=== PATIENT | female | born 1955 | race Caucasian/White ===

== ENCOUNTER → 2018-04-26 10:36 | Outpatient (CLI) | payer SELFPAY ==
--- NOTE | 2018-04-26 10:44 | US_ITS ---
STUDY: ABDOMINAL ULTRASOUND - RIGHT UPPER QUADRANT REASON FOR VISIT: Female, 62 years old. Right abdominal pain x1 month. TECHNIQUE: Ultrasound evaluation of the right upper quadrant was performed with real-time and static hurley-scale imaging. TECHNICAL QUALITY: Adequate. COMPARISON: None. FINDINGS: Liver: The liver measures 16 cm. There is increased echogenicity consistent with fatty infiltration. The bile ducts are within normal limits. There is hepatic color flow. The direction of portal flow is hepatopetal. There is limited parenchymal detail. Gallbladder: Normal distended gallbladder. The gallbladder wall measures 2.8 mm. There is a negative sonographic Carreno's sign. There is no pericholecystic fluid. There are no gallstones. Common Bile Duct (C.B.D.): The common bile duct measures 3.5 mm. Pancreas: Normal size of the head, body and tail of the pancreas. There is normal echogenicity of the pancreas. There is no demonstrated pancreatic mass or cyst. Right Kidney: Normal size of the right kidney. The right kidney measures 10.5 x 5.5 x 5 cm. Normal renal cortex. The right cortex measures 1.5 cm. There is no demonstrated renal mass or cyst. There is no right hydronephrosis. US/Abdomen Limited IMPRESSION: Hepatic steatosis. Echogenic pancreas frequency with fat deposition. No gallbladder inflammation, biliary obstruction, hydronephrosis or ascites. Electronically Signed: Emeli Doe MD at 6:37 EST , Service support ,
== END ==
PROVIDERS: Family Provider Family Medicine; PCP Family Medicine; Referring Provider Family Medicine; Visit Provider Family Medicine
DX: R10.11 Right upper quadrant pain (principal)
CPT/HCPCS: 76705

== ENCOUNTER → 2018-05-28 16:21 | Outpatient (CLI) | payer SELFPAY ==
--- NOTE | 2018-05-28 16:26 | CT_ITS ---
STUDY: CT ABDOMEN AND PELVIS WITH CONTRAST REASON FOR EXAM: Female, 62 years old. Right-sided pain for months. RADIATION DOSAGE (If Supplied By Facility): CTDIvol = ( 14.50 ) mGy, DLP = ( 994.21 ) mGycm TECHNIQUE: Transaxial images were obtained from the dome of the diaphragm to the symphysis pubis with oral contrast. 100 mL of Isovue-300 IV contrast were administered. Sagittal and coronal images were reconstructed. Individualized dose optimization techniques were used for this CT. COMPARISON: Right upper quadrant ultrasound April 26, 2018. FINDINGS: 2 mm noncalcified nodule is seen in the anterolateral periphery of the right middle lobe on the first axial image. The visualized portions of the heart are within normal limits. Normal size and contour of the liver. Liver density is difficult to accurately assess after IV contrast. The patent portal vein diameter is 10 mm. Normal gallbladder and extrahepatic biliary system. Diameter of the common bile duct is 6.5 mm. Normal spleen. Borderline decreased density in the neck/head of the pancreas may reflect some fatty infiltration. Normal bilateral adrenal glands. Normal right kidney. Normal left kidney. No hydronephrosis. Normal visualized stomach. Normal small intestine. Normal colon. The appendix is visualized and appears normal. There is mild to moderate atherosclerotic calcification of the abdominal aorta, without a demonstrated aneurysm. Normal inferior vena cava. Normal retroperitoneum. Normal urinary bladder. There is overall atrophy of the uterus. Mild posterior bulge of the body of the uterus could reflect a subserosal fibroid. There is a 2.75 x 2.65 x 2.6 cm left ovarian cyst that abuts the left posterior fundal aspect of the uterus. There is a very small umbilical hernia containing fat. There are multilevel degenerative changes of the visualized spine, with particular note of posterior disc protrusion and endplate spurring at L2-3 impinging on the spinal canal. CT/Abdomen/Pelvis WITH Contrast IMPRESSION: 1. 2.75 cm left ovarian cyst. 2. Overall atrophy of the uterus. Small subserosal fibroid suggested along the posterior body of the uterus. 3. Mild to moderate atherosclerotic aortic calcification. No demonstrated aneurysm. 4. Degenerative changes of the spine. There is posterior disc protrusion and endplate spurring at L2-3 that impinges on the spinal canal. 5. 2 mm noncalcified nodule in the right middle lobe. Per Fleischner guidelines, this does not require specific radiographic follow-up. One might consider dedicated chest CT to exclude the presence of other pulmonary nodules, however. Electronically Signed: Kota Grey MD at 8:39 EST , Service support ,
== END ==
PROVIDERS: Family Provider Family Medicine; PCP Family Medicine; Referring Provider Surgery; Visit Provider Surgery
DX: R10.11 Right upper quadrant pain (principal); G89.29 Other chronic pain
CPT/HCPCS: 74177; Q9967

== ENCOUNTER → 2019-01-01 11:39 | Outpatient (CLI) | payer SELFPAY ==
--- NOTE | 2019-01-01 11:49 | RAD_ITS ---
STUDY: X-RAY - PELVIS AND RIGHT HIP REASON FOR EXAM: Female, 63 years old. Chronic right hip pain TECHNIQUE: 3 views of the pelvis and hip. COMPARISON: None. FINDINGS: There is a non-specific bowel gas pattern. There are multiple calcified phleboliths. Normal bilateral iliac wings, sacroiliac joints and visualized sacrum. Normal bilateral superior and inferior pubic rami. Normal pubic symphysis. Normal bilateral ischial tuberosities. Normal visualized femoral head. There is enthesopathic spurring of the greater trochanter. Normal acetabulum. Normal hip joint. There is no acute fracture. RAD/HIP, UNI W/ Pelvis 2-3 Views IMPRESSION: No fracture. Joint spaces are well-preserved. Mild spurring. Electronically Signed: Fernie Tolliver MD at 16:56 EDT , Service support ,
== END ==
PROVIDERS: Family Provider Family Medicine; PCP Family Medicine; Referring Provider Family Medicine; Visit Provider Family Medicine
DX: M16.11 Unilateral primary osteoarthritis, right hip (principal); M70.61 Trochanteric bursitis, right hip; Y93.9 Activity, unspecified
CPT/HCPCS: 73502

== ENCOUNTER → 2019-01-14 15:06 | Outpatient (CLI) | payer SELFPAY ==
--- NOTE | 2019-01-14 15:20 | RAD_ITS ---
STUDY: X-RAY - LUMBAR SPINE REASON FOR EXAM: Female, 63 years old. Low back pain TECHNIQUE: 5 view(s) of the lumbar spine were obtained. COMPARISON: None FINDINGS: Normal lumbar lordosis. There is no substantial scoliosis. There is a normal alignment of the vertebrae. No evidence for acute fracture or subluxation. Multilevel disc space narrowing and osteophytic spurring. The soft tissue structures are unremarkable. RAD/L/S Spine Min 4 Views IMPRESSION: Moderate spondylosis. Electronically Signed: Yury Pearce MD at 22:12 EDT , Service support ,
== END ==
PROVIDERS: Family Provider Family Medicine; PCP Family Medicine; Referring Provider Anesthesiology Pain Medicine; Visit Provider Anesthesiology Pain Medicine
DX: M47.816 Spondylosis without myelopathy or radiculopathy, lumbar region (principal); M54.5 Low back pain
CPT/HCPCS: 72110